=== PATIENT | male | born 1965 | race Caucasian/White ===

== ENCOUNTER → 2024-07-30 06:51 | Outpatient (CLI) | payer OTHER, SELFPAY ==
--- NOTE | 2024-07-30 06:53 | DI.ECHO.S_ITS ---
[facility]---------+ [facility] : : [address] : : [place] : : [id number] : : Phone: [phone] Echocardiogram Report + + :Name: MALLY HENSLEY Study Date: 07/30/2024 Height: 72 in : :Hospital ReadingLocation: Weight: 237 lb : : Gender: Male BSA: 2.3 m2 : :: 1965 Age: 59 yrs BP: 132/96 mmHg: :Reason For Study: ISCHEMIC HEART DISEASE : :Ordering Physician: SHANKAR, : :PATRICK Performed By: Agustina Lmeos : :Referring: PATRICK CHAPARRO : + + Interpretation Summary The ejection fraction is estimated to be 60-65%. Diastolic parameters suggest probable normal left ventricular diastolic function and normal filling pressures. The right ventricle is normal in size and function. There is mild mitral regurgitation. There is mild tricuspid regurgitation. Pulmonary artery pressures cannot be estimated because of the lack of a measurable TR jet velocity but the IVC suggests a CVP of around 3 mmHg. There is evidence of an interatrial shunt by color Doppler. Previous study 10/07/2020 with the injection of contrast documented an interatrial shunt. Procedure: A two-dimensional transthoracic echocardiogram with color flow and Doppler was performed. The study quality was technically adequate. Comparison is made with the echocardiogram of 10/07/2020. The patient was in sinus rhythm with heart rates between 66-73 bpm during the exam. Left Ventricle: The left ventricle is normal in size and wall thickness. The ejection fraction is estimated to be 60-65%. Diastolic parameters suggest probable normal left ventricular diastolic function and normal filling pressures. Right Ventricle: The right ventricle is normal in size and function. Atria: The left atrial size is normal. Right atrial size is normal. There is evidence of an interatrial shunt by color Doppler. Previous study 10/07/2020 with the injection of contrast documented an interatrial shunt. Mitral Valve: The mitral valve is normal. There is mild mitral regurgitation. Aortic Valve: The aortic valve is trileaflet. The aortic valve opens well. There is no aortic valve stenosis. No aortic regurgitation is present. Tricuspid Valve: The tricuspid valve is normal. There is mild tricuspid regurgitation. Pulmonary artery pressures cannot be estimated because of the lack of a measurable TR jet velocity but the IVC suggests a CVP of around 3 mmHg. Pulmonic Valve: The pulmonic valve leaflets are thin and pliable; valve motion is normal. There is no pulmonic valvular regurgitation. Great Vessels: The aortic root is normal size. The dimensions of the ascending aorta are normal. The IVC is of normal diameter and collapses greater than 50% with a sniff. This suggests a low right atrial pressure of 3 mm Hg. Pericardium/ Pleura There is a trivial pericardial effusion noted. There is no pleural effusion. MMode/2D Measurements & Calculations LVIDd: 4.1 cm LVOT diam: 2.1 cm LVIDs: 3.0 cm Ao root diam: 3.3 cm FS: 28.5 % asc Aorta Diam: 3.2 cm EPSS: 0.50 cm IVSd: 0.86 cm LVPWd: 0.96 cm LV dorsey. diameter/BSA (cm/m^2): 1.8 LV sys. diameter/BSA (cm/m^2): 1.3 LA A2 area: 23.8 cm2 RA long axis: 6.0 cm LA A4 area: 18.6 cm2 RA area: 20.4 cm2 LA length (vol): 5.6 cm RA vol: 58.4 ml LA vol: 66.7 ml RA : 25.5 ml/m2 LA vol index: 29.1 ml/m2 IVC diam: 1.7 cm RVD1 (basal): 3.5 cm RVD2 (mid): 3.0 cm TAPSE: 2.3 cm Doppler Measurements & Calculations Ao V2 max: 110.0 cm/sec LVOT Max Jair: 97.0 cm/sec Ao V2 mean: 81.3 cm/sec LV V1 max P.8 mmHg Ao max P.8 mmHg LV V1 VTI: 21.7 cm Ao mean P.8 mmHg YOSHI(I,D): 3.1 cm2 Ao V2 VTI: 25.1 cm YOSHI(V,D): 3.2 cm2 sev ratio: 0.86 YOSHI indexed to BSA (cm^2/m^2): 1.4 MV E max jair: 55.8 cm/sec PA V2 max: 66.6 cm/sec MV A max jair: 41.4 cm/sec PA V2 mean: 51.8 cm/sec MV E/A: 1.3 PA mean P.1 mmHg Med Peak E' Jair: 8.2 cm/sec PA pr(Accel): 20.8 mmHg E/E' med: 6.8 Lat Peak E' Jair: 14.7 cm/sec E/E' lat: 3.8 E/e' average: 5.3 MV dec time: 0.28 sec SV(LVOT): 78.6 ml Reading Physician:12:45 PM
== END ==
PROVIDERS: Referring Provider Chiropractor; Visit Provider Chiropractor
DX: I08.1 Rheumatic disorders of both mitral and tricuspid valves (principal); I25.9 Chronic ischemic heart disease, unspecified
CPT/HCPCS: 93306